=== PATIENT | female | born 1955 | race Caucasian/White ===

== ENCOUNTER 2025-01-17 11:18 | Emergency (ER) | payer MEDICARE, MEDICAID ==
[~2025-01-17] VITALS: Ht 160 cm; Wt 78.0 kg
[~2025-01-17 11:18] MED LIST: AMOXICILLIN500 MG PO; ANTIVERT25 MG PO; BACTRIM DS1 TAB PO; BENADRYL 50MG C50 MG OR; CIPRO250 MG OR; FLEXERIL OR; LORTAB 5 OR; MACROBID100 MG OR; MEDDOSEPAK OR; NAPROSYN500 MG OR; NO HOME MEDS; PENICILLIN VK250 MG PO; PEPCID20 MG PO; PERCOCET 10/31 COMBO PO; PERCOCET 5/325M1 TAB OR; PRILOSEC20 MG/CAP PO; PROTONIX40 MG PO; PYRIDIUM200 MG OR; TRAMADOL HCL50 MG OR; TYLENOL500 MG OR; ULTRAM50 M1 PO; VALIUM5 MG PO
[2025-01-17 12:19] LABS: EOS% 1.7 % (0-8); HEMATOCRIT 39.5 % (37.0-47.0); HEMOGLOBIN 12.7 g/dl (12.0-16.0); IMMATURE GRANULOCYTES 0.3 % (0.0-5.0); LYMPH% 18.8 % (15-41); MEAN CORPUSCULAR HGB 31.5 pG CALC (26.0-32.0); MEAN CORPUSCULAR HGB CONC 32.2 g/dL CAL (32.0-36.0); MONO% 13.2 % (2-13); NEUT# 1.86 thou/uL (2.00-7.15); RED BLOOD COUNT 4.03 mill/uL (4.20-5.60); RED CELL DISTRI WIDTH 12.5 % (11.5-15.5)
[2025-01-17 12:34] LABS: POTASSIUM 4.2 mmol/l (3.5-5.1); TOTAL PROTEIN 6.6 g/dL (6.3-8.2)
[2025-01-17 12:35] LABS: BILIRUBIN, TOTAL 0.8 mg/dL (0.02-1.3)
[2025-01-17] MEDS ORDERED: ONDANSETRON 4 MG/TAB ODT SL ONE (12:55)
[2025-01-17 14:53] VITALS: BP 158/94
== END 2025-01-17 14:58 | disposition home or self-care (01) ==
LOC: ED 11:18
PROVIDERS: Family Medicine
DX: B34.9 Viral infection, unspecified (principal); F17.200 Nicotine dependence, unspecified, uncomplicated; Z20.822 Contact with and (suspected) exposure to COVID-19